=== PATIENT | female | born 1950 | race Caucasian/White ===

== ENCOUNTER 2021-01-30 18:34 | Emergency (ER) | payer MEDICARE, OTHER ==
[~2021-01-30] VITALS: Ht 154.9 cm; Wt 68.0 kg
--- NOTE | 2021-01-30 18:39 | NUR ---
CALLED TO TRIAGE,STEPPED OUT PER ADMITTING
--- NOTE | 2021-01-30 18:48 | NUR ---
TO ER BED 4, C/O LLE PAIN X1 WEEK. CONCERN ABOUT DVT. DENIES ANY CHEST DISCOMFORT, MD AT BEDSIDE FOR EVAL
--- NOTE | 2021-01-30 19:07 | NUR ---
US AT BEDSIDE
[2021-01-30 19:59] VITALS: BP 137/84
--- NOTE | 2021-01-30 19:59 | NUR ---
Patient discharged to home in stable condition. Written and verbal after care instructions given. Patient verbalizes understanding of instruction.
== END 2021-01-30 20:00 | disposition home or self-care (01) ==
LOC: ER 18:42
DX: M79.605 Pain in left leg (principal); E11.9 Type 2 diabetes mellitus without complications
CPT/HCPCS: 93971-TC

== ENCOUNTER → 2022-02-06 | Emergency (ER) | payer MEDICARE, OTHER ==
[~2022-02-06] VITALS: Ht 154.9 cm; Wt 66.2 kg
[~2022-02-06] MED LIST: FAMO-131 PO; OMEPRAZOLE 20 MG CAPSULE.DR GT STA; PANTOPRAZOLE 40 MG TABLET.DR PO ONE
[2022-02-06 18:11] LABS: BASOPHILS % (AUTO) 0.7 % (0.0-2.0); EOSINOPHILS % (AUTO) 2.2 % (0.0-6.0); HEMATOCRIT 44 % (33-45); HEMOGLOBIN 14.6 g/dL (11.5-14.8); LYMPHOCYTES # (AUTO) 1.8 K/uL (0.8-4.8); LYMPHOCYTES % (AUTO) 32.5 % (20.0-44.0); MEAN CORPUSCULAR HGB CONC 33 g/dl (31.0-36.0); MEAN CORPUSCULAR VOLUME 85 fL (82-100); MONOCYTES # (AUTO) 0.6 K/uL (0.1-1.30); MONOCYTES % (AUTO) 10.2 % (2.0-12.0); NEUTROPHILS # (AUTO) 2.9 K/uL (1.8-8.9); NEUTROPHILS % (AUTO) 54.4 % (43.0-81.0); PLATELET COUNT (AUTO) 243 K/uL (150-450); RED BLOOD CELL COUNT(AUTO) 5.16 MIL/uL (4.0-5.2); WHITE BLOOD COUNT (AUTO) 5.4 K/uL (4.3-11.0)
[2022-02-06 19:07] LABS: CALCIUM, SERUM 9.8 mg/dL (8.5-10.1); CREATININE 0.7 mg/dL (0.6-1.3)
--- NOTE | 2022-02-06 20:03 | NUR ---
Patient discharged to home in stable condition. Written and verbal after care instructions given. Patient verbalizes understanding of instruction. PT ambulatory with a steady gait
[2022-02-06 20:22] VITALS: BP 145/99
[2022-02-06 23:23] LABS: ALBUMIN 3.9 g/dL (3.4-5.0); BILIRUBIN,DIRECT 0.1 mg/dL (0.0-0.2); BILIRUBIN,TOTAL 0.5 mg/dL (0.2-1.0); TOTAL PROTEIN, SERUM 7.9 g/dL (6.4-8.2)
== END | disposition home or self-care (01) ==
LOC: ER 15:51
DX: K21.9 Gastro-esophageal reflux disease without esophagitis (principal); R10.13 Epigastric pain; R10.11 Right upper quadrant pain; I10 Essential (primary) hypertension; E11.9 Type 2 diabetes mellitus without complications
CPT/HCPCS: 36415; 76705-TC; 80048-TC; 80076-TC; 83690-TC; 85025-TC

== ENCOUNTER 2023-09-30 14:31 | Inpatient (IN) | payer MEDICARE, OTHER ==
[~2023-09-30] VITALS: Ht 154.9 cm; Wt 66.2 kg
[~2023-09-30 14:31] MED LIST changes: -OMEPRAZOLE 20 MG CAPSULE.DR GT STA; -PANTOPRAZOLE 40 MG TABLET.DR PO ONE
[2023-09-30] MEDS ORDERED: KETOROLAC TROMETHAMINE INJ 30 MG/ML VIAL ONE ×3 (16:08→16:47)
[2023-09-30] MEDS: KETOROLAC TROMETHAMINE INJ 30 MG/ML VIAL IM ONE (16:23)
[2023-09-30 17:23] LABS: BASOPHILS % (AUTO) 0.2 % (0.0-2.0); EOSINOPHILS # (AUTO) 0.1 K/uL (0.0-0.7); EOSINOPHILS % (AUTO) 0.7 % (0.0-6.0); HEMATOCRIT 42 % (33-45); HEMOGLOBIN 13.8 g/dL (11.5-14.8); LYMPHOCYTES # (AUTO) 1.2 K/uL (0.8-4.8); LYMPHOCYTES % (AUTO) 11.5 % (20.0-44.0); MEAN CORPUSCULAR HEMOGLOBIN 28 PG (26.0-33.0); MEAN CORPUSCULAR HGB CONC 33 g/dl (31.0-36.0); MEAN CORPUSCULAR VOLUME 85 fL (82-100); MONOCYTES # (AUTO) 0.7 K/uL (0.1-1.30); MONOCYTES % (AUTO) 6.9 % (2.0-12.0); NEUTROPHILS # (AUTO) 8.3 K/uL (1.8-8.9); NEUTROPHILS % (AUTO) 80.7 % (43.0-81.0); PLATELET COUNT (AUTO) 203 K/uL (150-450); RED BLOOD CELL COUNT(AUTO) 4.92 MIL/uL (4.0-5.2); RED CELL DISTRIBUTION WIDTH 14.3 % (11.5-15.0); WHITE BLOOD COUNT (AUTO) 10.3 K/uL (4.3-11.0)
[2023-09-30 17:30] LABS: CARBON DIOXIDE 26 mmol/L (21-32); CHLORIDE 104 mmol/L (98-107); CREATININE 0.5 mg/dL (0.6-1.3); GLUCOSE 104 mg/dL (74-106); POTASSIUM 3.8 mmol/L (3.5-5.1); SODIUM SERUM 138 mmol/L (136-145); UREA NITROGEN, BLOOD 14 mg/dL (7-18)
[2023-09-30] MEDS ORDERED: ONDANSETRON HCL/PF 4 MG/2 ML VIAL IVP PRN (17:30)
[2023-09-30] MEDS ORDERED: HYDROCODONE/APAP 5/325MG TABLET PO PRN (17:30)
[2023-09-30] MEDS ORDERED: Z GUARD REMEDY 4 OZ OINT TP PRN (17:30)
[2023-09-30] MEDS ORDERED: MAG HYDROX/AL HYDROX/SIMETH 30 ML UDC PO PRN (17:30)
[2023-09-30 17:36] LABS: ALANINE AMINOTRANSFERASE 43 U/L (12-78); ALBUMIN 3.5 g/dL (3.4-5.0); ALKALINE PHOSPHATASE 98 U/L (46-116); ASPARTATE AMINOTRANSFERASE 21 U/L (15-37); BILIRUBIN,DIRECT 0.1 mg/dL (0.0-0.2); BILIRUBIN,TOTAL 0.6 mg/dL (0.2-1.0); INR 0.96 (0.91-1.10); PARTIAL THROMBOPLASTIN TIME 25.6 SEC (24.3-34.3); PROTHROMBIN TIME 9.9 SECS (9.2-11.1); TOTAL PROTEIN, SERUM 7.1 g/dL (6.4-8.2)
[2023-09-30] MEDS ORDERED: DEXTROSE 50%-WATER 50 ML DISP.SYRIN IV PRN (18:00)
[2023-09-30] MEDS ORDERED: DAPA5TAB PO (18:17)
[2023-09-30] MEDS ORDERED: ALEN70TA80 PO (18:17)
[2023-09-30] MEDS ORDERED: METO25TA20 PO (18:17)
[2023-09-30] MEDS ORDERED: IBUP-1955 PO (18:17)
[2023-09-30] MEDS ORDERED: MECL-182 PO (18:17)
[2023-09-30] MEDS ORDERED: ROSU10TA29 PO (18:17)
[2023-09-30] MEDS ORDERED: DONE5TAB34 PO (18:17)
[2023-09-30] MEDS ORDERED: MEMA5TAB42 PO (18:17)
[2023-09-30] MEDS ORDERED: SERT50TA12 PO (18:17)
[2023-09-30] MEDS ORDERED: BACL10TA PO (18:17)
[2023-09-30] MEDS ORDERED: ERGO500093 PO (18:17)
[2023-09-30] MEDS ORDERED: LINA5TAB PO (18:17)
[2023-09-30] MEDS ORDERED: MELO5CAP PO (18:17)
[2023-09-30] MEDS ORDERED: FAMO20TA8 PO (18:17)
[2023-09-30] MEDS ORDERED: OXYB10TA30 PO (18:17)
[2023-09-30 20:00] VITALS: BP 146/68; TEMP 97.9; O2SAT 95
[2023-09-30] MEDS: BLOOD SUGAR DIAGNOSTIC 1 EACH STRIP IN SCH (22:48)
[2023-10-01 04:04] VITALS: BP 126/55; TEMP 98; O2SAT 99
[2023-10-01 06:23] LABS: BASOPHILS % (AUTO) 0.3 % (0.0-2.0); EOSINOPHILS # (AUTO) 0.1 K/uL (0.0-0.7); EOSINOPHILS % (AUTO) 1.1 % (0.0-6.0); HEMATOCRIT 39 % (33-45); HEMOGLOBIN 12.9 g/dL (11.5-14.8); LYMPHOCYTES # (AUTO) 1.3 K/uL (0.8-4.8); LYMPHOCYTES % (AUTO) 19.1 % (20.0-44.0); MEAN CORPUSCULAR HEMOGLOBIN 29 PG (26.0-33.0); MEAN CORPUSCULAR HGB CONC 33 g/dl (31.0-36.0); MEAN CORPUSCULAR VOLUME 85 fL (82-100); MONOCYTES # (AUTO) 0.7 K/uL (0.1-1.30); MONOCYTES % (AUTO) 10.4 % (2.0-12.0); NEUTROPHILS # (AUTO) 4.9 K/uL (1.8-8.9); NEUTROPHILS % (AUTO) 69.1 % (43.0-81.0); PLATELET COUNT (AUTO) 181 K/uL (150-450); RED BLOOD CELL COUNT(AUTO) 4.52 MIL/uL (4.0-5.2); RED CELL DISTRIBUTION WIDTH 13.9 % (11.5-15.0)
[2023-10-01 06:38] LABS: ALBUMIN 2.8 g/dL (3.4-5.0); BILIRUBIN,TOTAL 0.7 mg/dL (0.2-1.0); CREATININE 0.6 mg/dL (0.6-1.3); PHOSPHORUS 3.4 mg/dL (2.5-4.9); POTASSIUM 3.9 mmol/L (3.5-5.1); TOTAL PROTEIN, SERUM 6.5 g/dL (6.4-8.2)
[2023-10-01] MEDS ORDERED: FAMOTIDINE (20 MG) 20 MG TABLET PO PRN (10:00)
[2023-10-01] MEDS: METOPROLOL TARTRATE 25 MG TABLET PO SCH (10:00)
[2023-10-01] MEDS: LINAGLIPTIN 5 MG TABLET PO SCH (10:00)
[2023-10-01] MEDS: BACLOFEN (10 MG) 10 MG TABLET PO SCH (10:00)
[2023-10-01] MEDS: SERTRALINE HCL 50 MG TABLET PO SCH (10:00)
[2023-10-01 10:14] LABS: THYROID STIMULATING HORMONE 0.901 uIU/mL (0.358-3.74)
[2023-10-01] MEDS: IV D5/0.45 NACL 1,000 ML IV PRN (11:57)
[2023-10-01 12:00] VITALS: BP 121/71; TEMP 98; O2SAT 97
[2023-10-01] MEDS ORDERED: BUPIVACAINE 0.5 % PF 150 MG/30 ML VIAL ONE (12:17)
[2023-10-01] MEDS ORDERED: VANCOMYCIN 1 GM VIAL ONE (12:17)
[2023-10-01] MEDS ORDERED: FENTANYL PF 100MCG/2ML AMPUL ONE (16:06)
[2023-10-01] MEDS ORDERED: MIDAZOLAM HCL 2 MG/2ML VIAL ONE (16:07)
[2023-10-01] MEDS: OXYBUTYNIN CHLORIDE 5 MG TABLET PO SCH (16:39)
[2023-10-01] MEDS: ATORVASTATIN 10 MG TABLET PO SCH (18:00)
[2023-10-01] MEDS ORDERED: MORPHINE SULFATE INJ 2 MG/ML DISP.SYRIN IV PRN (19:00)
[2023-10-01] MEDS: HYDROCODONE/APAP 10/325MG TABLET PO PRN (19:04)
[2023-10-01 20:00] VITALS: BP 153/77; TEMP 98.4; O2SAT 95
[2023-10-01] MEDS: IV D5/0.45 NACL W/20 MEQ KCL 1L IV PRN (21:17)
[2023-10-02] MEDS: ANCEF 1 GM/50 ML D5W IV SCH (00:24)
[2023-10-02 04:00] VITALS: BP 119/59; TEMP 98.8; O2SAT 95
[2023-10-02 08:00] VITALS: BP 114/62; TEMP 98.6; O2SAT 93
[2023-10-02] MEDS: INSULIN REGULAR, HUMAN 100 UNIT/ML 3 ML VIAL SQ PRN (08:09)
[2023-10-02] MEDS: DAPAGLIFLOZIN PROPANEDIOL 5 MG TABLET PO SCH (08:30)
[2023-10-02] MEDS ORDERED: ATORVASTATIN 10 MG TABLET PO SCH (09:30)
[2023-10-02] MEDS: ENOXAPARIN SODIUM 40 MG/0.4 ML DISP.SYRIN SQ SCH (11:06)
[2023-10-02 11:20] LABS: BASOPHILS % (AUTO) 0.1 % (0.0-2.0); EOSINOPHILS % (AUTO) 0.3 % (0.0-6.0); HEMATOCRIT 35 % (33-45); HEMOGLOBIN 11.7 g/dL (11.5-14.8); LYMPHOCYTES # (AUTO) 1.4 K/uL (0.8-4.8); MEAN CORPUSCULAR HEMOGLOBIN 29 PG (26.0-33.0); MEAN CORPUSCULAR HGB CONC 34 g/dl (31.0-36.0); MEAN CORPUSCULAR VOLUME 86 fL (82-100); MONOCYTES # (AUTO) 1.1 K/uL (0.1-1.30); MONOCYTES % (AUTO) 11.6 % (2.0-12.0); NEUTROPHILS # (AUTO) 7.1 K/uL (1.8-8.9); PLATELET COUNT (AUTO) 222 K/uL (150-450); RED BLOOD CELL COUNT(AUTO) 4.04 MIL/uL (4.0-5.2); RED CELL DISTRIBUTION WIDTH 14.4 % (11.5-15.0); WHITE BLOOD COUNT (AUTO) 9.6 K/uL (4.3-11.0)
[2023-10-02 11:29] LABS: CALCIUM, SERUM 7.9 mg/dL (8.5-10.1); CREATININE 0.9 mg/dL (0.6-1.3); POTASSIUM 3.6 mmol/L (3.5-5.1)
[2023-10-02] MEDS: ACETAMINOPHEN 325 MG TABLET PO PRN (14:52)
[2023-10-02 16:00] VITALS: BP 128/54; TEMP 99.1; O2SAT 94
[2023-10-02] MEDS: ATORVASTATIN 10 MG TABLET PO SCH (18:21)
[2023-10-02 20:00] VITALS: BP 119/62; TEMP 98.2; O2SAT 92
[2023-10-03 04:00] VITALS: BP 125/64; TEMP 98.7; O2SAT 92
[2023-10-03 08:00] VITALS: BP 118/59; TEMP 98.6; O2SAT 93
[2023-10-03] MEDS: METOPROLOL TARTRATE 25 MG TABLET PO SCH (08:41)
[2023-10-03 16:00] VITALS: BP 129/62; TEMP 97.5; O2SAT 94
[2023-10-03 20:00] VITALS: BP 101/89; TEMP 98.4; O2SAT 94
== END 2023-10-03 23:12 | DRG 522 ==
LOC: ER 14:39 → TELE1 18:05 → MEDSG1 19:53
PROVIDERS: ADMIT Internal Medicine; ATTEND Internal Medicine
PROC: 0SRR0JZ Replacement of Right Hip Joint, Femoral Surface with Synthetic Substitute, Open Approach (ICD-10-PCS; principal; 2023-10-01)
DX: S72.001A Fracture of unspecified part of neck of right femur, initial encounter for closed fracture (principal); W01.0XXA Fall on same level from slipping, tripping and stumbling without subsequent striking against object, initial encounter; E11.9 Type 2 diabetes mellitus without complications; E78.5 Hyperlipidemia, unspecified; I10 Essential (primary) hypertension; Z79.84 Long term (current) use of oral hypoglycemic drugs; Z79.899 Other long term (current) drug therapy; Z79.83 Long term (current) use of bisphosphonates; Y92.512 Supermarket, store or market as the place of occurrence of the external cause
CPT/HCPCS: 36415; 71045-TC; 73564-TC; 73700-TC; 80048-TC; 80053-TC; 80061-TC; 80076-TC; 82962-TC; 83735-TC; 84100-TC; 84439-TC; 84443-TC; 85025-TC; 85730-TC; 86850-TC; 93307-TC; 97110-TC; 97116-TC; 97530-TC; A4223; A6209; C1776; G0378; J0690; J1100; J1650; J1815; J1885; J2250; J2405; J2704; J3010; J3370; J3480; J3490; J7030; J7050; J7060